=== PATIENT | male | born 1960 ===

== ENCOUNTER 2016-11-01 10:57 | Emergency (ER) | payer SELFPAY ==
[2016-11-01 11:07] VITALS: BP 135/73; PULSE 109; RESP 18; TEMP 98.1; O2SAT 98
[2016-11-01] MEDS ORDERED: Oxycodone/Acetaminophen 5/325 mg Tab PO STA (12:09)
--- NOTE | 2016-11-01 12:10 | ED PDOC ---
HPI: Skin/Bite Injury Time Seen by Provider: 11/01/16 12:00 Chief Complaint (Nursing): Abnormal Skin Integrity Chief Complaint (Provider): Abscess History Per: Patient Additional Complaint(s): 56 yo male, PMh of DM and HTN, presents to ED for evaluation of possible abscess in coccyx area x 4 days. No fever or chills. Pt has had this x 3 in the past. Past Medical History Reviewed: Nursing Documentation, Vital Signs Vital Signs: Last Vital Signs Temp 98.1 F 11/01/16 11:06 Pulse 109 H 11/01/16 11:06 Resp 18 11/01/16 11:06 BP 135/73 11/01/16 11:06 Pulse Ox 98 11/01/16 12:10 - Medical History PMH: Diabetes, HTN Denies: Asthma, HIV, Chronic Kidney Disease - Surgical History Surgical History: Appendectomy - Family History Family History: States: Unknown Family Hx - Living Arrangements Living Arrangements: With Family - Social History Current smoker - smoking cessation education provided: No Alcohol: Social Drugs: Denies - Home Medications Home Medications: Ambulatory Orders Medication Instructions Recorded Multivitamin [Multi-Vitamin Daily] 1 tab PO DAILY 03/27/16 Potassium Gluconate 1 tab PO DAILY 03/27/16 Aspirin [Ecotrin] 81 mg PO DAILY #0 tabec 03/28/16 Atorvastatin [Lipitor] 80 mg PO HS #30 tab 03/28/16 Enalapril Maleate [Vasotec] 20 mg PO DAILY #0 tab 03/28/16 GlipiZIDE [Glucotrol] 5 mg PO DAILY #30 tab 03/28/16 MetFORMIN [glucoPHAGE] 1,000 mg PO BID #0 tab 03/28/16 Clindamycin [Cleocin] 300 mg PO BID #14 cap 11/01/16 oxyCODONE/Acetaminophen [Percocet 1 ea PO Q6 PRN #5 tab 11/01/16 5/325 mg Tab] - Allergies Allergies/Adverse Reactions: Allergies Allergy/AdvReac Type Severity Reaction Status Date / Time No Known Allergies Allergy Verified 11/01/16 11:46 Review of Systems ROS Statement: Except As Marked, All Systems Reviewed And Found Negative Skin: Positive for: Other (abscess) Physical Exam - Reviewed Nursing Documentation Reviewed: Yes Vital Signs Reviewed: Yes - Physical Exam Appears: Positive for: Well, Non-toxic, No Acute Distress Head Exam: Positive for: ATRAUMATIC, NORMAL INSPECTION, NORMOCEPHALIC Skin: Positive for: Normal Color, Warm, DRY Eye Exam: Positive for: EOMI, Normal appearance, PERRL ENT: Positive for: Normal ENT Inspection Neck: Positive for: Normal, Painless ROM Cardiovascular/Chest: Positive for: Regular Rate, Rhythm Respiratory: Positive for: CNT, Normal Breath Sounds Gastrointestinal/Abdominal: Positive for: Normal Exam, Bowel Sounds, Soft Back: Positive for: Other ((+) tender, erythematous, fluctuant mass ~ 5 cm over sacrum) Extremity: Positive for: Normal ROM Neurologic/Psych: Positive for: Alert, Oriented - ECG O2 Sat by Pulse Oximetry: 98 Medical Decision Making Medical Decision Making: Abscess incised and drained by proposal manager writer, see procedure note Started on Clinda and percocet. Advised follow up in 2 days for wound check and packing removal. surgical consult outpt as well. Pt provided info for [employer] Disposition - Clinical Impression Clinical Impression: Abscess - Patient ED Disposition Is Patient to be Admitted: No - Disposition Disposition: Routine/Home Disposition Time: 12:46 Condition: STABLE Prescriptions: Clindamycin [Cleocin] 300 mg PO BID #14 cap oxyCODONE/Acetaminophen [Percocet 5/325 mg Tab] 1 ea PO Q6 PRN #5 tab PRN Reason: Pain, Severe (8-10) Instructions: Abscess (ED) Forms: [employer] (Azeri), [facility] ED School/Work Excuse - Incision & Drainage Of Abscess Anesthesia: Lidocaine 1% Prep Used: Sterile Water, Betadine Procedure: Incised W/Scalpel Blade#: (11), Drained Pus (~8cc), Irrigated Cavity W/Saline, Probed To Break Up Loculations, Packed W/Gauze
[2016-11-01] MEDS ORDERED: Oxycodone/Acetaminophen 5/325 mg Tab ONE (12:18)
== END 2016-11-01 12:49 | disposition home or self-care (01) ==
LOC: H.ER 10:57
DX: L05.01 Pilonidal cyst with abscess (principal)

== ENCOUNTER 2016-11-03 13:44 | Emergency (ER) | payer SELFPAY ==
[2016-11-03 13:51] VITALS: BP 137/82; PULSE 104; RESP 18; TEMP 99; O2SAT 98
--- NOTE | 2016-11-03 13:59 | ED PDOC ---
HPI: Wound Care - HPI Time Seen by Provider: 11/03/16 13:52 Chief Complaint (Nursing): Wound Check Chief Complaint (Provider): Packing removal History Per: Patient Exam Limitations: no limitations Onset/Duration Of Symptoms: Days (2 ) Quality Of Symptoms: Painful Severity: Mild Pain Scale Rating Of: 2 Additional Complaint(s): Pt states he did not take pain medications today. PT states the dressing came off during work. PT reports I and D 2 days ago. No fever. Taking antibiotics as prescribed. Past Medical History Reviewed: Historical Data, Nursing Documentation, Vital Signs Vital Signs: Last Vital Signs Temp 99 F 11/03/16 13:49 Pulse 104 H 11/03/16 13:49 Resp 18 11/03/16 13:49 BP 137/82 11/03/16 13:49 Pulse Ox 98 11/03/16 13:49 - Medical History PMH: Diabetes, HTN Denies: Asthma, HIV, Chronic Kidney Disease - Surgical History Surgical History: Appendectomy - Family History Family History: States: Unknown Family Hx - Living Arrangements Living Arrangements: With Family - Social History Current smoker - smoking cessation education provided: No Alcohol: None Drugs: Denies - Home Medications Home Medications: Ambulatory Orders Medication Instructions Recorded Multivitamin [Multi-Vitamin Daily] 1 tab PO DAILY 03/27/16 Potassium Gluconate 1 tab PO DAILY 03/27/16 Aspirin [Ecotrin] 81 mg PO DAILY #0 tabec 03/28/16 Atorvastatin [Lipitor] 80 mg PO HS #30 tab 03/28/16 Enalapril Maleate [Vasotec] 20 mg PO DAILY #0 tab 03/28/16 GlipiZIDE [Glucotrol] 5 mg PO DAILY #30 tab 03/28/16 MetFORMIN [glucoPHAGE] 1,000 mg PO BID #0 tab 03/28/16 Clindamycin [Cleocin] 300 mg PO BID #14 cap 11/01/16 oxyCODONE/Acetaminophen [Percocet 1 ea PO Q6 PRN #5 tab 11/01/16 5/325 mg Tab] - Allergies Allergies/Adverse Reactions: Allergies Allergy/AdvReac Type Severity Reaction Status Date / Time No Known Allergies Allergy Verified 11/01/16 11:46 Review of Systems ROS Statement: Except As Marked, All Systems Reviewed And Found Negative Skin: Positive for: Other Physical Exam - Reviewed Nursing Documentation Reviewed: Yes Vital Signs Reviewed: Yes - Physical Exam Appears: Positive for: Well, Non-toxic, No Acute Distress Head Exam: Positive for: ATRAUMATIC, NORMAL INSPECTION, NORMOCEPHALIC Skin: Positive for: Warm. Negative for: Normal Color ((-) erythema (+) undurated area without packing superior gluteal cleft, approx 2 cm in diameted ) Eye Exam: Positive for: Normal appearance ENT: Positive for: Normal ENT Inspection Neck: Positive for: Normal, Painless ROM Respiratory: Negative for: Accessory Muscle Use, Respiratory Distress Back: Positive for: Normal Inspection Extremity: Positive for: Normal ROM. Negative for: Tenderness Neurologic/Psych: Positive for: Alert - ECG O2 Sat by Pulse Oximetry: 98 Medical Decision Making Medical Decision Making: Discussed warm compresses and continuing antibiotics. Disposition - Clinical Impression Clinical Impression: Encounter for wound re-check - Patient ED Disposition Is Patient to be Admitted: No - Disposition Referrals: García Barnes MD [Staff Provider] - Disposition: Routine/Home Disposition Time: 13:57 Condition: GOOD Additional Instructions: Continue antibiotics. Warm compresses. Follow-up with surgeon as needed. Instructions: Abscess (ED)
== END 2016-11-03 14:16 | disposition home or self-care (01) ==
LOC: H.ER 13:44
DX: Z48.00 Encounter for change or removal of nonsurgical wound dressing (principal); E11.9 Type 2 diabetes mellitus without complications; I10 Essential (primary) hypertension; Z79.82 Long term (current) use of aspirin; Z79.84 Long term (current) use of oral hypoglycemic drugs

== ENCOUNTER 2017-12-06 06:16 | Emergency (ER) | payer SELFPAY ==
[2017-12-06] MEDS ORDERED: Sodium Chloride 0.9% 1,000 ML IV STA (07:18)
[2017-12-06 07:44] LABS: BASO # 0.1 K/uL (0.0-0.2); BASO % 0.8 % (0.0-2.0); EOS # 0.2 K/uL (0.0-0.7); HEMOGLOBIN 13.7 g/dL (12.0-18.0); LYMPH # 2.5 K/uL (1.0-4.3); LYMPH % 24.9 % (20.0-40.0); MEAN CORPUSCULAR HGB CONC 34.1 g/dL (33.0-37.0); MEAN PLATELET VOLUME 7.8 fl (7.2-11.7); MONO # 0.6 K/uL (0.0-0.8); MONO % 5.4 % (0.0-10.0); NEUT # 6.8 K/uL (1.8-7.0); NEUT % 66.9 % (50.0-75.0); NRBC % 0.1 % (0.0-0.0); RBC 4.72 Mil/uL (4.40-5.90); RED CELL DISTRIBUTION WIDTH 13.8 % (11.5-14.5); WHITE BLOOD COUNT 10.2 K/uL (4.8-10.8)
--- NOTE | 2017-12-06 07:46 | ED PDOC ---
HPI: Headache Time Seen by Provider: 12/06/17 07:09 Chief Complaint (Nursing): Headache Chief Complaint (Provider): headache, nausea and dizziness History Per: Patient History/Exam Limitations: no limitations Onset/Duration Of Symptoms: Days (x1) Current Symptoms Are (Timing): Still Present Associated Symptoms: Nausea Additional Complaint(s): Vernon Story is a 57 year old male, with a past medical history of diabetes and hypertension, who presents to the emergency department stating he has been suffering from an occipital headache radiating to the frontal region associated with dizziness and nausea onset since yesterday. Patient states he had an episode of dry heaving yesterday and has been sweating a lot but thinks it could be due to working out outside with elevated temperatures. Patient does note urinating slightly more than normal. He checked his sugar at home which was in the 170 range. Patient denies any chest pain, syncope, difficulty breathing, abdominal pain, rash or fever. Patient reports compliance with medications at home which includes Metformin and Glipizide. Patient also takes baby Aspirin and hydrochlorothiazide daily. No further medical complaints. PMD: Jeremy Jaeger Past Medical History Reviewed: Historical Data, Nursing Documentation, Vital Signs Vital Signs: Last Vital Signs Temp 98.5 F 12/06/17 06:39 Pulse 86 12/06/17 06:39 Resp 17 12/06/17 06:39 BP 159/72 H 12/06/17 06:39 Pulse Ox 98 12/06/17 06:39 - Medical History PMH: Diabetes, HTN, Hypercholesterolemia Denies: Asthma, HIV, Chronic Kidney Disease - Surgical History Surgical History: Appendectomy - Family History Family History: States: Unknown Family Hx - Social History Current smoker - smoking cessation education provided: No Alcohol: None Drugs: Denies - Home Medications Home Medications: Ambulatory Orders Medication Instructions Recorded Multivitamin [Multi-Vitamin Daily] 1 tab PO DAILY 03/27/16 Potassium Gluconate 1 tab PO DAILY 03/27/16 Aspirin [Ecotrin] 81 mg PO DAILY #0 tabec 03/28/16 Atorvastatin [Lipitor] 80 mg PO HS #30 tab 03/28/16 Enalapril Maleate [Vasotec] 20 mg PO DAILY #0 tab 03/28/16 GlipiZIDE [Glucotrol] 5 mg PO DAILY #30 tab 03/28/16 MetFORMIN [glucoPHAGE] 1,000 mg PO BID #0 tab 03/28/16 Clindamycin [Cleocin] 300 mg PO BID #14 cap 11/01/16 oxyCODONE/Acetaminophen [Percocet 1 ea PO Q6 PRN #5 tab 11/01/16 5/325 mg Tab] - Allergies Allergies/Adverse Reactions: Allergies Allergy/AdvReac Type Severity Reaction Status Date / Time No Known Allergies Allergy Verified 11/01/16 11:46 Review of Systems ROS Statement: Except As Marked, All Systems Reviewed And Found Negative Constitutional: Negative for: Fever, Weight loss Cardiovascular: Negative for: Chest Pain, Orthopnea, Edema Gastrointestinal: Positive for: Nausea, Vomiting Neurological: Positive for: Headache, Dizziness Physical Exam - Reviewed Nursing Documentation Reviewed: Yes Vital Signs Reviewed: Yes - Physical Exam Appears: Positive for: No Acute Distress Head Exam: Positive for: ATRAUMATIC, NORMAL INSPECTION, NORMOCEPHALIC Skin: Positive for: Normal Color, Warm, Dry Eye Exam: Positive for: EOMI, Normal appearance, PERRL Neck: Positive for: Painless ROM, Supple Cardiovascular/Chest: Positive for: Regular Rate, Rhythm. Negative for: Murmur Respiratory: Positive for: Normal Breath Sounds. Negative for: Respiratory Distress Gastrointestinal/Abdominal: Positive for: Normal Exam, Soft. Negative for: Tenderness Back: Positive for: Normal Inspection Extremity: Positive for: Normal ROM (upper and lower extremities). Negative for : Deformity, Swelling Neurologic/Psych: Positive for: Alert, carton forming machine tender II-XII (normal), Oriented, Cerebellar Tests (intact coordination) - Laboratory Results Result Diagrams: 12/06/17 07:32 12/06/17 07:32 - ECG O2 Sat by Pulse Oximetry: 98 (RA) Pulse Ox Interpretation: Normal Medical Decision Making Medical Decision Making: Time: 07:09 Initial Impression: acute headache, dizziness Initial Plan: --Head w/o contrast [CT] --EKG --CMP --Troponin I --Urine dipstick --CBC w/ differential --Sodium Chloride 1,000 ml IV 1,000 mls/hr --Zofran Inj 4 mg IV --Urinalysis --Reevaluation -Plan will be for bloodwork, EKG, and IV fluids. Given diabetes and hypertension obtained CT of brain. 08:[address] FINDINGS: HEMORRHAGE: No intracranial hemorrhage. BRAIN: Normal trimble-white matter differentiation and density are appreciated throughout the cerebrum and cerebellum with the brainstem appearing unremarkable as well. There is no mass effect. There is no suspicious extra-axial fluid collection and the midline brain anatomy appears diffusely unremarkable. VENTRICLES: Unremarkable. No hydrocephalus. CALVARIUM: Unremarkable. PARANASAL SINUSES: Unremarkable as visualized. No significant inflammatory changes. MASTOID AIR CELLS: Unremarkable as visualized. No inflammatory changes. OTHER FINDINGS: None. IMPRESSION: Unremarkable noncontrast head CT. No significant interval change from prior CT dated 06/26/2016. 09:00 -Labs reviewed and showed mild hyperglycemia, normal CBC, trace hematuria requires repeat in x2 weeks. Troponin negative. -EKG: Normal sinus @ 61bpm w/o ST changes. 10:30 -Patient reports feeling much better. Clinic gave appointment for next week. patient wishes to go home. ----- Scribe Attestation: Documented by José Antonio Nuñez, acting as a scribe for Orestes Silva MD. Provider Scribe Attestation: All medical record entries made by the Scribe were at my direction and personally dictated by me. I have reviewed the chart and agree that the record accurately reflects my personal performance of the history, physical exam, medical decision making, and the department course for this patient. I have also personally directed, reviewed, and agree with the discharge instructions and disposition. Disposition - Clinical Impression Clinical Impression: Dizziness, Acute headache, Hyperglycemia - Disposition Referrals: [facility] [Outside] Disposition: Routine/Home Disposition Time: 10:30 Condition: STABLE Additional Instructions: Return to ER for any concern. Take medications as directed. Instructions: Headache, Adult, The ABCs of Diabetes, Acute Headache (ED) Forms: [employer] (Kyrgyz), [facility] ED School/Work Excuse
[2017-12-06 07:50] LABS: URINE BILIRUBIN NEGATIVE (NEGATIVE); URINE BLOOD NEGATIVE (NEGATIVE); URINE CLARITY CLEAR (Clear); URINE COLOR YELLOW (YELLOW); URINE GLUCOSE (UA) NEG (Normal); URINE LEUKOCYTE ESTERASE NEG Leu/uL (Negative); URINE PROTEIN 30 mg/dL (NEGATIVE); URINE UROBILINOGEN 0.2-1.0 mg/dL (0.2-1.0)
[2017-12-06 07:51] LABS: ALB/GLOB RATIO 1.5 (1.0-2.1); ALBUMIN 4.2 g/dL (3.5-5.0); ALT/SGPT 42 U/L (21-72); AST/SGOT 28 U/L (17-59); BLOOD UREA NITROGEN 19 mg/dl (9-20); CALCIUM 9.5 mg/dL (8.4-10.2); GFR AFRICAN-AMERICAN > 60; GFR NON-AFRICAN AMERICAN > 60
--- NOTE | 2017-12-06 08:54 | CT ---
Date of service: 12/06/2017 PROCEDURE: CT HEAD WITHOUT CONTRAST. HISTORY: headache dizzy COMPARISON: Noncontrast head CT 06/26/2016. TECHNIQUE: Axial computed tomography images were obtained through the head/brain without intravenous contrast. Radiation dose: Total exam DLP = 818.12 mGy-cm. This CT exam was performed using one or more of the following dose reduction techniques: Automated exposure control, adjustment of the mA and/or kV according to patient size, and/or use of iterative reconstruction technique. FINDINGS: HEMORRHAGE: No intracranial hemorrhage. BRAIN: Normal trimble-white matter differentiation and density are appreciated throughout the cerebrum and cerebellum with the brainstem appearing unremarkable as well. There is no mass effect. There is no suspicious extra-axial fluid collection and the midline brain anatomy appears diffusely unremarkable. VENTRICLES: Unremarkable. No hydrocephalus. CALVARIUM: Unremarkable. PARANASAL SINUSES: Unremarkable as visualized. No significant inflammatory changes. MASTOID AIR CELLS: Unremarkable as visualized. No inflammatory changes. OTHER FINDINGS: None. IMPRESSION: Unremarkable noncontrast head CT. No significant interval change from prior CT dated 06/26/2016.
--- NOTE | 2017-12-06 09:29 | CARD ---
APPROVED REPORT Date of service: 12/06/2017 EKG Measurement Heart [id number] <Conclusion> Normal sinus rhythm Normal ECG
[2017-12-06 09:36] VITALS: PULSE 71; RESP 16
[2017-12-06 10:50] VITALS: O2SAT 98
[2017-12-06 10:51] VITALS: BP 125/80; TEMP 97.9
== END 2017-12-06 10:51 | disposition home or self-care (01) ==
LOC: H.ER 06:16
DX: R51 Headache (principal); R42 Dizziness and giddiness; E11.65 Type 2 diabetes mellitus with hyperglycemia; E78.00 Pure hypercholesterolemia, unspecified; I10 Essential (primary) hypertension; Z79.84 Long term (current) use of oral hypoglycemic drugs; Z79.82 Long term (current) use of aspirin
CPT/HCPCS: 70450; 80053; 81003; 82948; 84484; 85025; 93005; 96361; 96374; 96375; 99285; J1885; J2405; J7030